=== PATIENT | male | born 1960 | race Caucasian/White ===

== ENCOUNTER 2018-03-03 12:33 | Outpatient (CLI) | payer MEDICARE ==
--- NOTE | 2018-03-03 14:02 | ULT ---
THRYOID ULTRASOUND: Date: 03-03-18 Provided Clinical History: Thyroid nodule. FINDINGS: Right thyroid lobe measures about 4.4 x 2.3 x 1.3 cm and demonstrates no focal abnormality. Left thyroid lobe measures 3.4 x 1.0 x 1.8 cm and demonstrates no focal abnormality. IMPRESSION: No focal thyroid abnormality is evident. POS: [facility]
== END 2018-03-03 12:34 | disposition home or self-care (01) ==
LOC: BICULT 12:33
PROVIDERS: ATTEND Internal Medicine
DX: E04.1 Nontoxic single thyroid nodule (principal)
CPT/HCPCS: 76536

== ENCOUNTER 2018-07-19 08:30 | Outpatient (CLI) | payer MEDICARE ==
--- NOTE | 2018-07-19 10:31 | ULT ---
ABDOMINAL ULTRASOUND: Date: 07/19/18 COMPARISON: None. HISTORY: Splenomegaly. TECHNIQUE: Multiplanar Duran scale sonographic imaging of the abdomen obtained. FINDINGS: The imaged pancreas is unremarkable. The distal body and tail of the pancreas are obscured by bowel g as. No focal liver lesion or intrahepatic biliary dilatation is noted. Imaged IVC and aorta within normal limits. No gallbladder wall thickening or pericholecystic fluid. No gallstones are noted. Sonographic Rosado' s sign is negative. Common bile duct measures 2.0 mm, within normal limits. Right kidney measures 11.3 cm craniocaudal dimension and demonstrates no evidence for stone, hydronep hrosis, or mass. Left kidney measures 10.6 cm craniocaudal dimension and demonstrates no evidence for stone, hydronephrosis, or mass. Spleen measures up to 10.7 x 3.4 cm, within normal limits. IMPRESSION: No acute findings. Spleen is normal in size. POS: [facility]
== END 2018-07-19 08:31 | disposition home or self-care (01) ==
LOC: BICULT 08:30
PROVIDERS: ATTEND Internal Medicine Medical Oncology
DX: R16.1 Splenomegaly, not elsewhere classified (principal)
CPT/HCPCS: 76700

== ENCOUNTER 2019-06-14 12:27 | Outpatient (CLI) | payer MEDICARE ==
--- NOTE | 2019-06-14 14:10 | RAD ---
LEFT KNEE RADIOGRAPHS 4 VIEWS: DATE: 06/14/2019. PROVIDED CLINICAL HISTORY: Left knee pain. FINDINGS: No evidence for a fracture or other acute osseous abnormality. Alignment appears anatomic. Joint sp aces appear preserved. No definite knee joint capsular distention evident. IMPRESSION: No evidence for an acute osseous abnormality or significant arthropathy. POS: [facility]
== END 2019-06-14 12:28 | disposition home or self-care (01) ==
LOC: BICRAD 12:27
PROVIDERS: ATTEND Internal Medicine
DX: M25.562 Pain in left knee (principal)
CPT/HCPCS: 36415; 85025